=== PATIENT | female | born 1965 | race Caucasian/White ===

== ENCOUNTER 2017-11-19 12:48 | Inpatient (IN) | payer OTHER ==
[~2017-11-19] VITALS: Ht 170.2 cm; Wt 87.8 kg
[~2017-11-19 12:48] MED LIST: AMBIEN10 MG PO; CLONIDINE HCL0.1 MG PO; DELTASONE20 M1 PO; FLEXERIL10 MG PO; FLOVENT 22120 INHALA IH; FLOVENT DISKUS1 DIS2 IH; KLONOPIN1 MG PO; LAMICTAL200 MG PO; LEXAPRO20 MG PO; METOPROLOL SUCC25 MG PO; MOTRIN600 MG PO; NORCO 5/3251 TABLET PO; PERCOCET 7.51 TABLET PO; PRAVASTATIN SOD20 MG PO; PREDNISONE10 MG PO; QUETIAPINE FUM400 MG PO; RELPAX40 MG PO; SEROQUEL XR400 MG PO; SEROQUEL400 MG PO; SINGULAIR10 MG PO; SYMBICORT60 INHALAT IH; TRAZODONE HCL50 MG PO; ZOFRAN ODT4 MG PO
[2017-11-19 15:01] LABS: BASOPHIL (%) 0.5 % (0-1); BASOPHIL COUNT 0.1 K/uL (0-0.1); EOSINOPHIL (%) 0.8 % (0-5); EOSINOPHIL COUNT 0.1 K/uL (0-0.3); HEMATOCRIT 38.4 % (36.0-46.0); HEMOGLOBIN 12.9 G/DL (11.9-15.5); IMMATURE GRANULOCYTE (%) 0.4 % (0.0-0.7); LYMPHOCYTE (%) 16.3 % (15-42); LYMPHOCYTE COUNT 1.7 K/uL (1.0-2.8); MCHC 33.6 G/DL (30.0-36.0); MCV 92.3 FL (83-99); MONOCYTE (%) 6.8 % (3-12); MONOCYTE COUNT 0.7 K/uL (0-0.8); NEUTROPHIL (%) 75.2 % (45-76); NEUTROPHIL COUNT 7.9 K/uL (1.8-6.4); PLATELET COUNT 247 K/uL (156-360); RBC DIS.WIDTH-CV 13.3 % (11.8-14.6); RBC DIS.WIDTH-SD 45.3 % (39-53); RED BLOOD COUNT 4.16 M/uL (3.80-5.20); WHITE BLOOD COUNT 10.5 K/uL (4.1-10.2)
[2017-11-19 15:07] LABS: CHLORIDE 103 mEq/L (99-109); POTASSIUM 4.7 mEq/L (3.7-5.4); SODIUM 138 mEq/L (136-147)
[2017-11-19 15:09] LABS: GLUCOSE 99 mg/dL (70-99)
[2017-11-19 15:13] LABS: CREATININE 0.8 mg/dL (0.6-1.3); GFR ESTIMATE (CALCULATED) > 59 mL/min/
[2017-11-19 15:14] LABS: UREA NITROGEN (BUN) 8 mg/dL (9-23)
[2017-11-19 15:21] LABS: QUANTITATIVE HCG < 4.0 MIU/ML
[2017-11-19] MEDS ORDERED: ADVIL,NUPRIN,M200 MG PO (15:59)
[2017-11-19] MEDS ORDERED: FLEXERIL5 MG PO (15:59)
[2017-11-19] MEDS ORDERED: VIIBRYD20 MG PO (16:03)
[2017-11-19] MEDS ORDERED: CLONAZEPAM1 MG PO (16:04)
[2017-11-19] MEDS ORDERED: OXYCODONE HCL15 MG PO (16:04)
[2017-11-19] MEDS ORDERED: LISINOPRIL20 MG PO (16:04)
[2017-11-19] MEDS ORDERED: MINIPRESS1 MG PO (16:05)
[2017-11-19 19:47] VITALS: BP 109/69
[2017-11-20] VITALS (8 sets, daily range): BP systolic 82–135; BP diastolic 50–68
[2017-11-20 06:55] LABS: BASOPHIL (%) 0.7 % (0-1); BASOPHIL COUNT 0.1 K/uL (0-0.1); EOSINOPHIL (%) 3.2 % (0-5); EOSINOPHIL COUNT 0.3 K/uL (0-0.3); HEMOGLOBIN 11.3 G/DL (11.9-15.5); IMMATURE GRANULOCYTE (%) 0.2 % (0.0-0.7); LYMPHOCYTE (%) 33.7 % (15-42); LYMPHOCYTE COUNT 2.8 K/uL (1.0-2.8); MCH 30.1 PG (29.0-34.0); MCHC 32.3 G/DL (30.0-36.0); MCV 93.1 FL (83-99); MONOCYTE (%) 9.3 % (3-12); MONOCYTE COUNT 0.8 K/uL (0-0.8); NEUTROPHIL (%) 52.9 % (45-76); NEUTROPHIL COUNT 4.3 K/uL (1.8-6.4); PLATELET COUNT 217 K/uL (156-360); RBC DIS.WIDTH-CV 12.9 % (11.8-14.6); RBC DIS.WIDTH-SD 44.4 % (39-53); RED BLOOD COUNT 3.76 M/uL (3.80-5.20); WHITE BLOOD COUNT 8.2 K/uL (4.1-10.2)
[2017-11-20 07:14] LABS: CHLORIDE 107 MEQ/L (99-109); CREATININE 0.6 MG/DL (0.6-1.3); GFR ESTIMATE (CALCULATED) > 59 mL/min/; GLUCOSE 94 mg/dL (70-99); POTASSIUM 4.3 MEQ/L (3.7-5.4); SODIUM 140 MEQ/L (136-147); UREA NITROGEN (BUN) 8 mg/dL (9-23)
[2017-11-21 01:12] VITALS: BP 131/66
[2017-11-21 03:56] VITALS: BP 132/72
[2017-11-21 06:30] LABS: BASOPHIL (%) 0.8 % (0-1); BASOPHIL COUNT 0.1 K/uL (0-0.1); EOSINOPHIL (%) 3.9 % (0-5); EOSINOPHIL COUNT 0.2 K/uL (0-0.3); HEMATOCRIT 35.2 % (36.0-46.0); HEMOGLOBIN 11.4 G/DL (11.9-15.5); IMMATURE GRANULOCYTE (%) 0.2 % (0.0-0.7); LYMPHOCYTE COUNT 2.6 K/uL (1.0-2.8); MCH 30.6 PG (29.0-34.0); MCHC 32.4 G/DL (30.0-36.0); MCV 94.6 FL (83-99); MONOCYTE (%) 10.7 % (3-12); MONOCYTE COUNT 0.6 K/uL (0-0.8); NEUTROPHIL (%) 41.4 % (45-76); NEUTROPHIL COUNT 2.5 K/uL (1.8-6.4); PLATELET COUNT 211 K/uL (156-360); RBC DIS.WIDTH-CV 12.8 % (11.8-14.6); RBC DIS.WIDTH-SD 44.5 % (39-53); RED BLOOD COUNT 3.72 M/uL (3.80-5.20)
[2017-11-21 06:59] LABS: CHLORIDE 107 MEQ/L (99-109); CREATININE 0.7 MG/DL (0.6-1.3); GFR ESTIMATE (CALCULATED) > 59 mL/min/; GLUCOSE 79 mg/dL (70-99); POTASSIUM 4.4 MEQ/L (3.7-5.4); SODIUM 139 MEQ/L (136-147); UREA NITROGEN (BUN) 5 mg/dL (9-23)
[2017-11-21 07:41] VITALS: BP 101/68
[2017-11-21 07:57] LABS: BENZODIAZEPINES, URINE SCREEN Negative (200 ng/mL)
[2017-11-21 09:44] VITALS: BP 118/64
[2017-11-21] MEDS ORDERED: AUGMENTIN875 MG PO (14:09)
== END 2017-11-21 15:02 | disposition home or self-care (01) | DRG 603 ==
LOC: EME 12:48 → 2EAST 16:08 → EDOF 16:08 → ENRESERV 16:10 → 2EAST 17:34
PROVIDERS: Hospitalist; Internal Medicine; Nurse Practitioner Family
DX: L03.114 Cellulitis of left upper limb (principal); S61.452A Open bite of left hand, initial encounter; E78.5 Hyperlipidemia, unspecified; I95.2 Hypotension due to drugs; T40.2X5A Adverse effect of other opioids, initial encounter; I10 Essential (primary) hypertension; F17.210 Nicotine dependence, cigarettes, uncomplicated; W55.01XA Bitten by cat, initial encounter; F31.9 Bipolar disorder, unspecified; Y92.230 Patient room in hospital as the place of occurrence of the external cause; Z23 Encounter for immunization; Z79.899 Other long term (current) drug therapy; B96.89 Other specified bacterial agents as the cause of diseases classified elsewhere
CPT/HCPCS: 80048; 80306 90; 83605; 84702; 85025; 87040; 99281; 99285; J0295; J1644; J1885; J7030; J7050